=== PATIENT | female | born 1990 | race African-American/Black ===

== ENCOUNTER 2016-09-06 11:51 | Outpatient (CLI) | payer MEDICAID ==
[~2016-09-06] VITALS: Ht 167.6 cm; Wt 93.6 kg
[~2016-09-06 11:51] MED LIST: PREN1TAB60 PO
[2016-09-06 12:03] VITALS: BP 111/62
== END 2016-09-06 13:05 | disposition home or self-care (01) ==
LOC: LDOP 11:51
PROVIDERS: ATTEND Obstetrics & Gynecology
DX: O26.893 Other specified pregnancy related conditions, third trimester (principal); R10.9 Unspecified abdominal pain; R10.2 Pelvic and perineal pain; R25.2 Cramp and spasm; G43.909 Migraine, unspecified, not intractable, without status migrainosus; Z3A.36 36 weeks gestation of pregnancy
CPT/HCPCS: 59025; 99211; G0463

== ENCOUNTER 2016-09-22 10:04 | Outpatient (CLI) | payer MEDICAID ==
[~2016-09-22] VITALS: Ht 167.6 cm; Wt 94.1 kg
[2016-09-22 10:42] VITALS: BP 129/82
[2016-09-22 10:53] LABS: HEMOGLOBIN 10.5 g/dL (11.7-16.4)
[2016-09-22 11:04] LABS: ASPARTATE AMINO TRANSFERASE 13 U/L (15-37); BLOOD UREA NITROGEN 7 mg/dL (7-18)
== END 2016-09-22 12:00 | disposition home or self-care (01) ==
LOC: LDOP 10:04
PROVIDERS: ATTEND Obstetrics & Gynecology
DX: O26.893 Other specified pregnancy related conditions, third trimester (principal); R10.13 Epigastric pain; R51 Headache; O62.9 Abnormality of forces of labor, unspecified; Z3A.38 38 weeks gestation of pregnancy
CPT/HCPCS: 36415; 59025; 80053; 81001; 82150; 82570; 83690; 84156; 84550; 85025; 87086; 99211; G0463